=== PATIENT | female | born 1980 | race Caucasian/White ===

== ENCOUNTER → 2018-01-03 | Outpatient (CLI) | payer MEDICAID ==
--- NOTE | 2018-01-03 17:50 | XR ---
EXAMINATION TYPE: XR cervical spine comp DATE OF EXAM: 01/03/2018 COMPARISON: NONE HISTORY: Neck pain TECHNIQUE: 5 views FINDINGS: Cervical vertebra have normal spacing and alignment. Posterior elements are intact. Neural foramina are fairly well-maintained. Atlantoaxial facet joint is normal. There are no cervical ribs. IMPRESSION: Negative cervical spine exam.
== END | disposition home or self-care (01) ==
LOC: RADXRMAIN 16:39
PROVIDERS: ATTEND Physician Assistant Medical
DX: M54.2 Cervicalgia (principal)
CPT/HCPCS: 72050

== ENCOUNTER → 2020-11-02 | Outpatient (CLI) | payer MEDICAID ==
--- NOTE | 2020-11-02 10:38 | MM ---
Reason for exam: screening (asymptomatic). Baseline mammogram. History: Took hormonal contraceptives beginning at age 20. Physical Findings: Nurse did not find any significant physical abnormalities on exam. MG 3D Screening Mammo W/Cad Bilateral CC and MLO view(s) were taken. XCCL view(s) were taken of the right breast. The breast tissue is extremely dense which could obscure a lesion on mammography. There is no discrete abnormality. These results were verbally communicated with the patient and result sheet given to the patient on 11/02/20. ASSESSMENT: Negative, BI-RAD 1 RECOMMENDATION: Routine screening mammogram of both breasts in 1 year.
== END | disposition home or self-care (01) ==
LOC: RADMAMWWP 07:46
PROVIDERS: ATTEND Obstetrics & Gynecology
DX: Z12.31 Encounter for screening mammogram for malignant neoplasm of breast (principal)
CPT/HCPCS: 77063; 77067

== ENCOUNTER → 2021-02-09 | Outpatient (CLI) | payer MEDICAID ==
[2021-02-09 12:02] LABS: Basophils # (A) 0.06 X 10*3/uL (0.00-0.10); Basophils % (A) 0.8 %; Eosinophils # (A) 0.22 X 10*3/uL (0.04-0.35); Eosinophils % (A) 2.8 %; HGB 13.5 g/dL (12.0-15.0); Lymphocytes % (A) 25.7 %; MCH 30.6 pg (27.0-32.0); MCHC 32.9 g/dL (32.0-37.0); Mean Platelet Volume 9.7 fL (9.5-12.2); Monocytes # (A) 0.58 X 10*3/uL (0.20-1.00); Monocytes % (A) 7.4 %; Neutrophils # (A) 4.88 X 10*3/uL (1.80-7.70); Neutrophils % (A) 62.7 %; Platelet Count 326 X 10*3/uL (140-440); RBC 4.41 X 10*6/uL (4.10-5.20); RDW 13.3 % (11.5-14.5); WBC 7.79 X 10*3/uL (4.50-10.00)
[2021-02-09 14:12] LABS: African American GFR (CKD) 107.6 (60.0-200.0); Albumin 4.7 g/dL (3.80-4.90); Albumin/Globulin Ratio 1.81 (1.60-3.17); Anion Gap 3.7 mmol/L (4.00-12.00); BUN/Creat Ratio 13.75 Ratio (12.00-20.00); Calcium 10.4 mg/dL (8.7-10.3); Carbon Dioxide 27.3 mmol/L (21.6-31.8); Chol/HDL Ratio 3.48; Globulin 2.6 g/dL (1.6-3.3); LDL Cholesterol,Calculated 63.6 mg/dL (0.0-131.0); Non-African American GFR(CKD) 92.9 (60.0-200.0); Potassium 4.8 mmol/L (3.5-5.5); Total Bilirubin 0.3 mg/dL (0.2-1.2); Total Protein 7.3 g/dL (6.2-8.2); VLDL Calculation 45.4 mg/dL (5.00-40.00)
== END | disposition home or self-care (01) ==
LOC: LABWHC1 07:22
PROVIDERS: ATTEND Pediatrics
DX: Z00.01 Encounter for general adult medical examination with abnormal findings (principal); Z13.220 Encounter for screening for lipoid disorders
CPT/HCPCS: 36415; 80053; 80061; 85025

== ENCOUNTER → 2022-04-25 | Outpatient (CLI) | payer MEDICAID ==
--- NOTE | 2022-04-26 10:14 | MM ---
Reason for Exam: Screening (asymptomatic). Last mammogram was performed 1 year(s) and 6 month(s) ago. Patient History: Menarche at age 16. First Full-Term at age 31. Late child-bearing (after 30). Hormonal Contraceptives, from age 20 until age 30. Risk Values: Martha 5 year model risk: 0.7%. NCI Lifetime model risk: 12.5%. Prior Study Comparison: 11/02/2020 Bilateral Screening Mammogram, [facility]. Tissue Density: The breast tissue is extremely dense which could obscure a lesion on mammography. Findings: Analyzed By CAD. Stable benign-appearing left axillary lymph nodes. There are new prominent right axillary lymph nodes. Overall Assessment: Incomplete: need additional imaging evaluation, BI-RAD 0 Management: Diagnostic Breast Ultrasound of the right breast. Targeted ultrasound right axilla. Electronically signed and approved by: Garett Pacheco M.D.
== END | disposition home or self-care (01) ==
LOC: RADMAMWWP 07:21
PROVIDERS: ATTEND Obstetrics & Gynecology
DX: Z12.31 Encounter for screening mammogram for malignant neoplasm of breast (principal)
CPT/HCPCS: 77063; 77067

== ENCOUNTER → 2022-04-27 | Outpatient (CLI) | payer MEDICAID ==
--- NOTE | 2022-04-27 14:13 | USB ---
Reason for Exam: Additional evaluation requested from abnormal screening. Patient History: Menarche at age 16. First Full-Term at age 31. Late child-bearing (after 31). Hormonal Contraceptives, from age 20 until age 30. Risk Values: Martha 5 year model risk: 0.7%. NCI Lifetime model risk: 12.5%. Technique: Method: Targeted. Prior Study Comparison: 11/02/2020 Bilateral Screening Mammogram, [facility]. 04/25/2022 Bilateral MG 3D screening mammo w/cad, [facility]. Findings: The axilla of the right breast was scanned. No solid or cystic masses are identified.. Axillary adenopathy is evident. One of these lymph nodes has minimal thickening of the cortex of 0.33 cm. Fatty hilum within the lymph nodes is evident. Overall Assessment: Probably benign, BI-RAD 3 Management: Diagnostic Breast Ultrasound of the right breast in 6 months. A clinical breast exam by your physician is recommended on an annual basis and results should be correlated with mammographic findings. Electronically signed and approved by: Rafita Aguiar D.O. Radiologis
== END | disposition home or self-care (01) ==
LOC: RADUSWWP 13:37
PROVIDERS: ATTEND Obstetrics & Gynecology
DX: R92.8 Other abnormal and inconclusive findings on diagnostic imaging of breast (principal)

== ENCOUNTER → 2022-06-28 | Outpatient (CLI) | payer MEDICAID ==
[2022-06-28 22:30] LABS: Gliadin AB IgA, Deaminated NEGATIVE (NEGATIVE); Gliadin AB IgA, Unit 1.1 U/mL; Gliadin AB IgG, Deaminated NEGATIVE (NEGATIVE); Gliadin AB IgG, Unit <0.4 U/mL
== END | disposition home or self-care (01) ==
LOC: LABWHC1 07:18
PROVIDERS: ATTEND Internal Medicine Gastroenterology
DX: K52.9 Noninfective gastroenteritis and colitis, unspecified (principal)
CPT/HCPCS: 36415; 83516; 85652; 86140

== ENCOUNTER → 2022-10-16 | Outpatient (CLI) | payer MEDICAID ==
[2022-10-16 14:29] LABS: Basophils # (A) 0.07 X 10*3/uL (0.00-0.10); Basophils % (A) 1.1 %; Eosinophils # (A) 0.21 X 10*3/uL (0.04-0.35); Eosinophils % (A) 3.4 %; HCT 35.3 % (37.2-46.3); HGB 11.3 g/dL (12.0-15.0); Immature Grans, Automated 0.3 %; Lymphocytes # (A) 1.95 X 10*3/uL (0.90-5.00); Lymphocytes % (A) 31.4 %; MCH 27.8 pg (27.0-32.0); MCV 86.9 fL (80.0-97.0); Mean Platelet Volume 9.5 fL (9.5-12.2); Monocytes # (A) 0.36 X 10*3/uL (0.20-1.00); Monocytes % (A) 5.8 %; NRBC Per 100 WBC 0 /100 WBCS (0.0-0.0); Neutrophils # (A) 3.61 X 10*3/uL (1.80-7.70); Platelet Count 390 X 10*3/uL (140-440); RBC 4.06 X 10*6/uL (4.10-5.20); RDW 13.8 % (11.5-14.5); WBC 6.22 X 10*3/uL (4.50-10.00)
[2022-10-16 15:25] LABS: ALT 13 U/L (8-44); AST 16 U/L (13-35); African American GFR (CKD) 103.3 (60.0-200.0); Albumin 4.4 g/dL (3.8-4.9); Albumin/Globulin Ratio 1.89 (1.60-3.17); Alkaline Phosphatase 83 U/L (41-126); BUN/Creat Ratio 12.84 Ratio (12.00-20.00); Blood Urea Nitrogen 10.5 mg/dL (9.0-27.0); Carbon Dioxide 25.5 mmol/L (20.0-27.5); Chloride 106 mmol/L (96-109); Globulin 2.3 g/dL (1.6-3.3); Glucose 100 mg/dL (70-110); Non-African American GFR(CKD) 89.1 (60.0-200.0); Potassium 4.4 mmol/L (3.5-5.5); Sodium 141 mmol/L (135-145); Total Bilirubin <0.15 mg/dL (0.30-1.20); Total Protein 6.7 g/dL (6.2-8.2)
[2022-10-18 01:50] LABS: Gliadin AB IgA, Deaminated NEGATIVE (NEGATIVE); Gliadin AB IgA, Unit 1.2 U/mL; Gliadin AB IgG, Deaminated NEGATIVE (NEGATIVE); Gliadin AB IgG, Unit <0.4 U/mL
== END | disposition home or self-care (01) ==
LOC: LABWHC1 07:31
PROVIDERS: ATTEND Pediatrics
DX: K21.9 Gastro-esophageal reflux disease without esophagitis (principal); R53.83 Other fatigue
CPT/HCPCS: 36415; 80053; 82306; 83516; 85025

== ENCOUNTER → 2022-10-29 | Outpatient (CLI) | payer MEDICAID ==
--- NOTE | 2022-10-29 09:27 | USB ---
Reason for Exam: Follow-up at short interval from prior study. Patient History: Menarche at age 16. First Full-Term at age 31. Late child-bearing (after 30). Hormonal Contraceptives, from age 20 until age 30. Risk Values: Martha 5 year model risk: 0.8%. NCI Lifetime model risk: 12.4%. Prior Study Comparison: 11/02/2020 Bilateral Screening Mammogram, [facility]. 04/25/2022 Bilateral MG 3D screening mammo w/cad, [facility]. 04/27/2022 Right US breast workup limited RT, [facility]. Findings: The axilla of the right breast and the retroareolar of the right breast were scanned. There is a single prominent lymph node identified right axilla measuring 1.8 x 0.6 cm cortical thickness of 0.28 cm versus 0.33 cm previously. Previously there was an additional lymph node seen which is not identified at this time. 2 follow-up advised. Overall Assessment: Probably benign, BI-RAD 3 Management: Diagnostic Breast Ultrasound of the right breast in 6 months. A clinical breast exam by your physician is recommended on an annual basis and results should be correlated with mammographic findings. This exam should not preclude additional follow-up of suspicious palpable abnormalities. Results were given to the patient verbally at the time of exam. Electronically signed and approved by: Satinder Martinez M.D. Radiologis
== END | disposition home or self-care (01) ==
LOC: RADUSWWP 08:43
PROVIDERS: ATTEND Obstetrics & Gynecology
DX: R92.8 Other abnormal and inconclusive findings on diagnostic imaging of breast (principal)

== ENCOUNTER → 2022-10-29 | Outpatient (CLI) | payer MEDICAID ==
--- NOTE | 2022-10-29 13:50 | US ---
EXAMINATION TYPE: US transvaginal DATE OF EXAM: 10/29/2022 COMPARISON: CLINICAL HISTORY: N92.4 EXCESSIVE BLEEDING IN THE PREMENOPAUSAL ROYA. Irregular menses. hx csection. TECHNIQUE: Transvaginal (TV). Date of LMP: 10/16/2022, EXAM MEASUREMENTS: Uterus: 8.6 x 5.2 x 3.5 cm Endometrial Stripe: 0.9 cm Right Ovary: 2.9 x 1.6 x 1.4 cm Left Ovary: 3.3 x 1.9 x 1.9 cm 1. Uterus: Anteverted Limited visualization due to bowel gas. Anechoic area seen at csection scar = 1.2 x 0.3 x 0.3 cm. 2. Endometrium: wnl 3. Right Ovary: follicles seen 4. Left Ovary: follicles seen 5. Bilateral Adnexa: free fluid adjacent to left ovary 6. Posterior cul-de-sac: no free fluid Cervix- nabothian cysts IMPRESSION: No significant abnormality is seen. Small amount of free fluid adjacent to the left ovary.
== END | disposition home or self-care (01) ==
LOC: RADUSWWP 08:40
PROVIDERS: ATTEND Obstetrics & Gynecology
DX: N92.4 Excessive bleeding in the premenopausal period (principal)
CPT/HCPCS: 76830

== ENCOUNTER → 2022-11-19 | Outpatient (CLI) | payer MEDICAID ==
[2022-11-19 11:09] LABS: Basophils # (A) 0.08 X 10*3/uL (0.00-0.10); Basophils % (A) 1.2 %; Eosinophils # (A) 0.18 X 10*3/uL (0.04-0.35); Eosinophils % (A) 2.7 %; HCT 33.9 % (37.2-46.3); HGB 10.8 g/dL (12.0-15.0); Immature Grans, Automated 0.3 %; Lymphocytes # (A) 1.94 X 10*3/uL (0.90-5.00); Lymphocytes % (A) 29.3 %; MCHC 31.9 g/dL (32.0-37.0); MCV 84.8 fL (80.0-97.0); Mean Platelet Volume 9.5 fL (9.5-12.2); Monocytes # (A) 0.47 X 10*3/uL (0.20-1.00); Monocytes % (A) 7.1 %; NRBC Per 100 WBC 0 /100 WBCS (0.0-0.0); Neutrophils # (A) 3.92 X 10*3/uL (1.80-7.70); Neutrophils % (A) 59.4 %; Platelet Count 376 X 10*3/uL (140-440); RDW 14.2 % (11.5-14.5); WBC 6.61 X 10*3/uL (4.50-10.00)
== END | disposition home or self-care (01) ==
LOC: LABPAT 07:28
PROVIDERS: ATTEND Obstetrics & Gynecology
DX: Z01.812 Encounter for preprocedural laboratory examination (principal)
CPT/HCPCS: 85025

== ENCOUNTER 2022-11-27 05:47 | Day surgery (SDC) | payer MEDICAID ==
[2022-11-22 14:43] VITALS: BMI 25.8
--- NOTE | 2022-11-26 20:45 | P.HPOB ---
History of Present Illness H&P Date: 11/26/22 Chief Complaint: Menorrhagia This patient is a pleasant 42 yr female who presents for endometrial ablation secondary to menorrhagia and dysmenorrhea. Evaluation has included a pelvic ultrasound which was normal. She is not a hormone candidate due to tobacco use. She is requesting trial of surgical treatment. Review of Systems Genitourinary: Reports as per HPI, Reports menorrhagia Menstruation: Reports period heavy Past Medical History Past Medical History: GERD/Reflux Additional Past Medical History / Comment(s): irregular and heavy menses,IBS History of Any Multi-Drug Resistant Organisms: None Reported Past Surgical History: Section Additional Past Surgical History / Comment(s): bump removed from side of face,wisdom teeth Past Anesthesia/Blood Transfusion Reactions: No Reported Reaction Additional Past Anesthesia/Blood Transfusion Reaction / Comment(s): no hx blood transfusion Past Psychological History: No Psychological Hx Reported Smoking Status: Current every day smoker Past Alcohol Use History: None Reported Past Drug Use History: None Reported - Past Family History Mother Family Medical History: No Reported History Medications and Allergies Home Medications Medication Instructions Recorded Confirmed Type Ergocalciferol [Vitamin D2 (1250 1,250 mcg PO WEEKLY 11/22/22 11/22/22 History Mcg = [id number] Iu)] Naproxen Sodium 550 mg PO DAILY PRN 11/22/22 11/22/22 History Omeprazole [PriLOSEC] 20 mg PO QAM 11/22/22 11/22/22 History Allergies Allergy/AdvReac Type Severity Reaction Status Date / Time No Known Allergies Allergy Verified 11/22/22 15:07 Exam - OBG Physical Exam Abdomen: bowel sounds normal, no diffuse tenderness, no bruit present, no guarding noted, no hepatomegaly, no splenomegaly, no mass Vulva: both: normal Vagina: normal moisture Cervix: no lesion, no discharge Uterus: normal size, normal contour Results Transvaginal ultrasound on 10/29/2022 was normal. Assessment and Plan Assessment: This is a pleasant 42 yr female with long standing menorrhagia who is requesting endometrial ablation for treatment. Plan is hysteroscopy, D&C and Novasure endometrial ablation. I have discussed this surgery and risks: infection, bleeding, possible uterine perforation and/or thermal injury. She also understands that this is not a form of control and she should never b ecome . All of her questions were answered and a written consent obtained. (1) Menorrhagia Status: Acute Code(s): N92.0 - EXCESSIVE AND FREQUENT MENSTRUATION WITH REGULAR CYCLE SNOMED Code(s): 109470180
[~2022-11-27 05:47] MED LIST: Pre Op ABX Message 1 EACH MISC MISCELLANE ONE
[2022-11-27] MEDS ORDERED: DEXAMETHASONE SOD PHOSPHATE 4 MG/ML 1 ML VIAL IV ONE (06:03)
[2022-11-27] MEDS ORDERED: MIDAZOLAM 2 MG/2 ML VIAL IV PRN (06:03)
[2022-11-27] MEDS ORDERED: LIDOCAINE 1% (10MG/ML) FOR IV START INTRADERMA PRN (06:03)
[2022-11-27] MEDS ORDERED: ONDANSETRON 4 MG/2 ML VIAL IVP ONE (06:03)
[2022-11-27] MEDS: LACTATED RINGERS 1,000 ML IV SCH (06:30)
[2022-11-27] MEDS ORDERED: fentaNYL (PF) 50 MCG/ML 2 ML AMP ONE (06:55)
[2022-11-27] MEDS ORDERED: LIDOCAINE 2% INJ 20 MG/ML (2 ML VIAL) ONE (06:55)
[2022-11-27] MEDS ORDERED: MIDAZOLAM 2 MG/2 ML VIAL ONE (06:55)
[2022-11-27] MEDS ORDERED: PROPOFOL 10 MG/ML 20 ML VIAL IV ONE (06:55)
[2022-11-27] MEDS ORDERED: KETOROLAC 15 MG/ML 1 ML VIAL ONE (06:55)
[2022-11-27 07:36] VITALS: TEMP 97.1
--- NOTE | 2022-11-27 07:36 | P.OP ---
Date of Procedure: 11/27/22 Preoperative Diagnosis: #1: Menorrhagia. #2: Dysmenorrhea Postoperative Diagnosis: Same Procedure(s) Performed: #1: Hysteroscopy. #2: Dilation and curettage. #3: NovaSure endometrial ablation Anesthesia: MAC Surgeon: Alessio Lemus Estimated Blood Loss (ml): 10 Urine output (ml): 50 Pathology: other (Uterine curettings) Condition: stable Disposition: PACU Indications for Procedure: Please see dictated H&P for intimate details of this patient's admission. Brief summary this pleasant 42-year-old 1 para 1 female long-standing dysmenorrhea and menorrhagia who is requesting endometrial ablation for treatment. Patient understands this surgery and risks and risks of infection, bleeding, possible uterine perforation, and/or thermal injury. All the patient's questions are answered and a written consent is obtained. Operative Findings: This patient normal appearing endometrial cavity Description of Procedure: This patient is taken to the operating room where she is laid in the supine position. She subsequent undergoes general anesthesia without incident. With adequate level of anesthesia placed in dorsal lithotomy position. She has a vaginal perineal prep and drape. Examination anesthesia shows a mid to slightly retroverted uterus of normal size. Bladder is drained for 50 mL clear urine. Weighted speculum was placed in the posterior vagina. Anterior lip of the cervix is grabbed with an Allis clamp. The uterus is then gently sounded to 9.5 cm. Gentle dilation is then done of the endocervix to allow the hysteroscope easily and the uterine cavity. Hysteroscopy is performed with saline solution the endometrial cavity appears clear and is measured a length of 6.0 cm. Hysteroscope was then removed. Cervix is dilated more to allow a small curette easily and uterine cavity. A thorough but gentle 4 quadrant curettage is then done. With this done the NovaSure device is then opened it appears to be intact. It is set at a length of 6.0 cm and opens up to a width of 4.7 cm. After passing the cavity integrity test, it is enabled at 155 W setting for 83 seconds. NovaSure device is then removed. Hysteroscopy is performed and the uterine cavity appears to be completely ablated up to the endocervix. Excellent results are noted. With this completed the procedure is ended. The Allis clamp and weighted speculum removed. All counts are correct 3. There are no complications. Patient is awakened from anesthesia and taken recovery room satisfactory condition.
[2022-11-27] MEDS ORDERED: SODIUM CHLORIDE 0.9% 1,000 ML IV ONE ×3 (08:09→08:45)
[2022-11-27] MEDS: HYDROmorphone 0.5 MG/0.5 ML SYRINGE IVP PRN ×2 (08:17→08:25)
[2022-11-27 09:08] VITALS: RESP 18
[2022-11-27 09:42] VITALS: BP 124/80; PULSE 68
== END 2022-11-27 09:48 | disposition home or self-care (01) ==
LOC: OR 05:47
PROVIDERS: ATTEND Obstetrics & Gynecology
DX: N85.8 Other specified noninflammatory disorders of uterus (principal); K21.9 Gastro-esophageal reflux disease without esophagitis; K58.9 Irritable bowel syndrome, unspecified; F17.210 Nicotine dependence, cigarettes, uncomplicated; Z79.899 Other long term (current) drug therapy
CPT/HCPCS: 81025; 88305; 58563; J2250; J1100; J2405; J3010; J1885; J2704; J1170; J2001

== ENCOUNTER 2022-12-04 06:07 | Day surgery (SDC) | payer MEDICAID ==
[2022-11-22 15:11] VITALS: BMI 25.8
[~2022-12-04 06:07] MED LIST changes: +LACTATED RINGERS 1,000 ML IV SCH; +LIDOCAINE 1% (10MG/ML) FOR IV START INTRADERMA PRN; -Pre Op ABX Message 1 EACH MISC MISCELLANE ONE
[2022-12-04 06:37] VITALS: TEMP 97.3
[2022-12-04] MEDS ORDERED: PROPOFOL 10 MG/ML 20 ML VIAL IV ONE (07:10)
[2022-12-04] MEDS ORDERED: LIDOCAINE 2% INJ 20 MG/ML (2 ML VIAL) ONE (07:10)
--- NOTE | 2022-12-04 07:23 | P.PCN ---
Date of Procedure: 12/04/22 Procedure(s) Performed: Brief history: Patient is a pleasant 42-year-old white female scheduled for an elective upper endoscopy as well as colonoscopy as a part of evaluation of GERD and chronic diarrhea of several years duration. She has 5-6 loose watery bowel movements daily. No blood or mucus in the stool. Procedure performed: Esophagogastroduodenoscopy with biopsy Colonoscopy With biopsy and snare polypectomy Preoperative diagnosis: GERD Chronic diarrhea Anesthesia: MAC Procedure: After informed consent was obtained from the patient was brought into the endoscopy unit and IV sedation was administered by anesthesia under continuous monitoring. Initially upper endoscopy was done. The Olympus GF 160 video endoscope was inserted inserted into the mouth and esophagus intubated without any difficulty and was gradually advanced into the stomach and duodenum and carefully examined. The bulb and second part of the duodenum appeared normal. The scope was then withdrawn into the stomach adequately insufflated with air and upon careful examination the antrum had mild gastritis and biopsies were done from this area. Mucosa of the body, cardia and fundus appeared normal. The scope was then withdrawn into the esophagus. The GE junction was located at 40 cm to the incisors. It appeared regular with no erythema erosions or ulcerations. Rest of the esophagus appeared normal. Patient tolerated the procedure well. At this time the patient continued to remain sedation. Initial digital rectal examination was normal. Olympus CF 160 video colonoscope was then inserted into the rectum and gradually advanced to the cecum without any difficulty. Careful examination was performed as the scope was gradually being withdrawn. The prep was excellent. Terminal ileum was intubated and 20 cm visualized and appeared normal. The cecum, ascending colon, transverse colon, descending colon, a normal. Sigmoid there was a 6 mm polyp removed by snare polypectomy. Rest of the sigmoid colon and rectum appeared normal. Random biopsies were done from ascending and descending colon to rule out microscopic/collagenous colitis. Retroflexion was performed in the rectum and no lesions were noted. Patient tolerated the procedure well. Impression: 1. Upper endoscopy revealed mild antral gastritis small hiatal hernia 2. Colonoscopy revealed 6 mm sigmoid; polyp status post polypectomy. Rest of the colon appeared normal Recommendations: Findings of this examination were discussed with the patient as well as her family. She was advised to follow with the biopsy results. If the biopsies reveal adenoma she can have a repeat colonoscopy in 5 years.
[2022-12-04 07:30] VITALS: RESP 16
[2022-12-04 07:44] VITALS: BP 121/83; PULSE 78
== END 2022-12-04 08:12 | disposition home or self-care (01) ==
LOC: ORWHC2ENDO 06:07
PROVIDERS: ATTEND Internal Medicine Gastroenterology
DX: D12.5 Benign neoplasm of sigmoid colon (principal); K29.50 Unspecified chronic gastritis without bleeding; K21.9 Gastro-esophageal reflux disease without esophagitis; K44.9 Diaphragmatic hernia without obstruction or gangrene; Z79.899 Other long term (current) drug therapy; Z87.891 Personal history of nicotine dependence
CPT/HCPCS: 81025; 45380; 45385; 43239; J2704; J2001; 88305

== ENCOUNTER → 2023-05-09 | Outpatient (CLI) | payer MEDICAID ==
--- NOTE | 2023-05-09 15:24 | USB ---
Reason for Exam: Follow-up at short interval from prior study. Patient History: Menarche at age 16. First Full-Term at age 31. Late child-bearing (after 30). Hormonal Contraceptives, from age 20 until age 30. Risk Values: Martha 5 year model risk: 0.8%. NCI Lifetime model risk: 12.4%. Technique: Method: Targeted. Prior Study Comparison: 11/02/2020 Bilateral Screening Mammogram, [facility]. 04/25/2022 Bilateral MG 3D screening mammo w/cad, [facility]. Findings: The axilla of the right breast and the retroareolar of the right breast were scanned. Technique utilized:US breast limited RT Image; Ultrasound imaging of: All 4 quadrants, the retroareolar region and axilla. Grossly stable appearing morphologically normal lymph node in the right axilla. Left lymph node may be the same from prior, it is difficult to be 100% certain. No evidence for organizing fluid collection or mass. Overall Assessment: Benign, BI-RAD 2 Management: Screening Mammogram of both breasts in 1 year. A clinical breast exam by your physician is recommended on an annual basis and results should be correlated with mammographic findings. This exam should not preclude additional follow-up of suspicious palpable abnormalities. Results were given to the patient verbally at the time of exam. Electronically signed and approved by: Rene Combs DO
== END | disposition home or self-care (01) ==
LOC: RADUSWWP 14:45
PROVIDERS: ATTEND Obstetrics & Gynecology
DX: R92.8 Other abnormal and inconclusive findings on diagnostic imaging of breast (principal)

== ENCOUNTER → 2023-08-06 | Outpatient (CLI) | payer MEDICAID ==
--- NOTE | 2023-08-07 19:58 | MM ---
Reason for Exam: Screening (asymptomatic). Last mammogram was performed 1 year(s) and 3 month(s) ago. Patient History: Menarche at age 16. First Full-Term at age 31. Late child-bearing (after 30). Hormonal Contraceptives, from age 20 until age 30. Risk Values: Martha 5 year model risk: 0.8%. NCI Lifetime model risk: 12.2%. Prior Study Comparison: 11/02/2020 Bilateral Screening Mammogram, [facility]. 04/25/2022 Bilateral MG 3D screening mammo w/cad, [facility]. Tissue Density: The breast tissue is heterogeneously dense. This may lower the sensitivity of mammography. Findings: Analyzed By CAD. There is no suspicious group of microcalcifications or new suspicious mass in either breast. Overall Assessment: Negative, BI-RAD 1 Management: Screening Mammogram of both breasts in 1 year. . Patient should continue monthly self-breast exams. A clinical breast exam by your physician is recommended on an annual basis. This exam should not preclude additional follow-up of suspicious palpable abnormalities. Note on Martha scores and lifetime risk: 1. A Martha score greater than 3% is considered moderate risk. If this is the case, consider specialist referral to assess eligibility for a risk reducing agent. 2. If overall lifetime risk for the development of breast cancer is 20% or higher, the patient may qualify for future screening with alternating mammogram and breast MRI. Electronically signed and approved by: Moy Mancini M.D. Radiologist
== END | disposition home or self-care (01) ==
LOC: RADMAMWWP 14:07
PROVIDERS: ATTEND Obstetrics & Gynecology
DX: Z12.31 Encounter for screening mammogram for malignant neoplasm of breast (principal)
CPT/HCPCS: 77063; 77067

== ENCOUNTER → 2024-10-09 | Outpatient (CLI) | payer BC ==
--- NOTE | 2024-10-09 12:59 | USB ---
Reason for Exam: Follow-up at short interval from prior study. Patient History: Menarche at age 16. First Full-Term at age 31. Late child-bearing (after 30). Hormonal Contraceptives, from age 20 until age 30. Risk Values: Martha 5 year model risk: 0.9%. NCI Lifetime model risk: 12.1%. Technique: Method: Whole Breast Handheld. Prior Study Comparison: 04/25/2022 Bilateral MG 3D screening mammo w/cad, [facility]. 08/06/2023 Bilateral MG 3D screening mammo w/cad, [facility]. 08/28/2024 Bilateral MG 3D screening mammo w/cad, [facility]. Findings: The whole breast of both breasts, the axilla of both breasts and the retroareolar of both breasts were scanned. Fall bilateral breast ultrasound including evaluation of the subareolar and axillary Regions is performed. No solid or cystic masses are identified.. No suspicious focal fluid collections are seen bilaterally. Overall Assessment: Negative, BI-RAD 1 Management: Screening Mammogram of both breasts in 11 months. Return to routine follow-up. A clinical breast exam by your physician is recommended on an annual basis and results should be correlated with mammographic findings. This exam should not preclude additional follow-up of suspicious palpable abnormalities. Results were given to the patient verbally at the time of exam. [facility], , 10/09/2024 12:55 PM. Electronically signed and approved by: Garett Pacheco M.D.
== END | disposition home or self-care (01) ==
LOC: RADUSWWP 12:20
PROVIDERS: ATTEND Obstetrics & Gynecology
DX: R92.333 Mammographic heterogeneous density, bilateral breasts (principal); Z92.0 Personal history of contraception